=== PATIENT | male | born 2000 | race Caucasian/White ===

== ENCOUNTER 2018-02-01 21:12 | Emergency (ER) | payer SELFPAY ==
[~2018-02-01] VITALS: Ht 188 cm; Wt 93.2 kg
[2018-02-01 21:22] VITALS: BP 130/74
== END 2018-02-01 21:46 | disposition home or self-care (01) ==
LOC: ED 21:40
DX: K02.9 Dental caries, unspecified (principal); K04.7 Periapical abscess without sinus
CPT/HCPCS: 99283